=== PATIENT | female | born 1950 | race Caucasian/White ===

== ENCOUNTER 2019-03-24 10:00 | Emergency (ER) | payer MEDICARE, MEDICAID ==
[~2019-03-24] VITALS: Ht 154.9 cm; Wt 80.0 kg
[~2019-03-24 10:00] MED LIST: BUDE0.253 NEB; COU1T PO; DILT120C10 PO; LEVO100T9 PO; LISI-604 PO; METF-436 PO; METO100T14 PO; RANI300C PO; SIMV10TA98 PO
[2019-03-24] MEDS ORDERED: normal saline 1000ML IV soln IVB ONE (10:15)
[2019-03-24 10:23] LABS: BASOPHILS # (AUTO) 0.1 X10'3 (0-0.2); EOSINOPHILS # (AUTO) 0.1 X10'3 (0-0.9); HEMOGLOBIN 11.6 g/dl (12.0-16.0); MEAN CORPUSCULAR HEMOGLOBIN 23.7 PG (27.0-31.0); MEAN CORPUSCULAR HGB CONC 32.9 g/dL (33.0-36.5); MONOCYTES # (AUTO) 0.9 X10'3 (0-0.9); RED BLOOD COUNT 4.89 X10'6 (4.20-5.60); WHITE BLOOD COUNT 9.8 X10'3 (4.5-11.0)
[2019-03-24 10:26] LABS: BASOPHILS % (AUTO) 1.2 % (0-1); EOSINOPHILS % (AUTO) 1.3 % (0-6); HEMATOCRIT 35.2 % (35.0-45.0); LYMPHOCYTES # (AUTO) 2.8 X10'3 (1.1-4.8); LYMPHOCYTES % (AUTO) 28.5 % (21-51); MEAN CORPUSCULAR VOLUME 72.1 FL (78-98); MEAN PLATELET VOLUME 7.6 FL (7.4-10.4); NEUTROPHILS # (AUTO) 5.9 X10'3 (1.8-7.7); PLATELET COUNT 594 X10'3 (140-440); RED CELL DISTRIBUTION WIDTH 20.4 % (11.5-14.5)
[2019-03-24 10:36] LABS: PARTIAL THROMBOPLASTIN TIME 46 SECONDS (22-32)
[2019-03-24 10:38] LABS: ALANINE AMINOTRANSFERASE 14 U/L (12-78); ALBUMIN 3.9 G/DL (3.4-5.0); ALKALINE PHOSPHATASE 118 IU/L (46-116); ANION GAP 9 (8-16); ASPARTATE AMINO TRANSFERASE 16 U/L (10-37); BILIRUBIN,TOTAL 0.6 MG/DL (0.1-1.0); BLOOD UREA NITROGEN 9 MG/DL (7-18); BUN/CREATININE RATIO 13.8 (6.6-38.0); CALCIUM 8.6 MG/DL (8.5-10.1); CHLORIDE 103 MMOL/L (99-107); CREATININE 0.65 MG/DL (0.40-0.90); GLUCOSE 142 MG/DL (70-104); LIPASE 128 U/L (73-393); POTASSIUM 3.2 MMOL/L (3.5-5.1); SODIUM 142 MMOL/L (135-145); TOTAL CARBON DIOXIDE 29.6 MMOL/L (24-32); TOTAL PROTEIN 7.9 G/DL (6.4-8.2); eGFR > 90 ML/MIN
[2019-03-24 10:40] LABS: CLARITY,URINE TURBID (Clear); COLOR,URINE RED (Yellow); PH,URINE 6.5 (4.8-8.0)
[2019-03-24 10:41] LABS: UA COLLECTION TYPE CLN CATCH MIDSTREAM
[2019-03-24 10:44] LABS: BACTERIA,URINE NONE SEEN /HPF (Neg); MUCUS STRANDS NONE SEEN /LPF (Neg); RBC,URINE TNTC /HPF (0-2); SQUAMOUS EPITHELIAL CELL,UR NONE SEEN /LPF (FEW)
[2019-03-24 10:48] LABS: ANISOCYTOSIS 3+; HYPOCHROMASIA 1+; MICROCYTOSIS 1+; PLATELET ESTIMATE INCREASED; POIKILOCYTOSIS 1+; TARGET CELLS FEW
[2019-03-24 10:49] LABS: ACANTHOCYTES 1+; POLYCHROMASIA 1+; SCHISTOCYTES FEW
[2019-03-24] MEDS ORDERED: SULF1TAB49 PO (12:13)
[2019-03-24 12:21] VITALS: BP 140/85
== END 2019-03-24 12:30 | disposition home or self-care (01) ==
LOC: ER 10:00
DX: N39.0 Urinary tract infection, site not specified (principal); R31.9 Hematuria, unspecified; D35.02 Benign neoplasm of left adrenal gland; D35.01 Benign neoplasm of right adrenal gland; K80.20 Calculus of gallbladder without cholecystitis without obstruction; Z79.01 Long term (current) use of anticoagulants; Z79.899 Other long term (current) drug therapy
CPT/HCPCS: 36415; 74176; 80053; 81001; 83690; 85025; 85610; 85730; 87088; 99284; J7030

== ENCOUNTER 2019-10-11 09:56 | Day surgery (SDC) | payer MEDICARE, MEDICAID ==
[~2019-10-11] VITALS: Ht 154.9 cm; Wt 72.3 kg
[2019-10-11] MEDS ORDERED: MIDAZolam 5mg/5ml vial ONE (10:05)
[2019-10-11] MEDS ORDERED: fentaNYL/PF 50MCG/1 ML 2ML syringe ONE (10:05)
[2019-10-11] MEDS ORDERED: LIDOcaine Viscous 15ml cup ONE (10:05)
[2019-10-11 10:07] VITALS: BP 149/76
[2019-10-11] MEDS ORDERED: POTA-82 PO (10:29)
[2019-10-11] MEDS ORDERED: WARF3TAB56 PO (10:29)
[2019-10-11] MEDS ORDERED: ATOR40TA71 PO (10:30)
[2019-10-11] MEDS ORDERED: OMEP-50 PO (10:30)
[2019-10-11 10:45] VITALS: BP 115/56
[2019-10-11 10:55] VITALS: BP 108/56
[2019-10-11 11:05] VITALS: BP 114/61
== END 2019-10-11 11:15 | disposition home or self-care (01) ==
LOC: GI LAB 09:56
PROVIDERS: ATTEND Internal Medicine Gastroenterology
DX: D50.0 Iron deficiency anemia secondary to blood loss (chronic) (principal); R12 Heartburn; K44.9 Diaphragmatic hernia without obstruction or gangrene; K29.70 Gastritis, unspecified, without bleeding; K31.7 Polyp of stomach and duodenum
CPT/HCPCS: 43239; 43251; C1773; G0500; J2250; J3010; J7040; 99152; A4620

== ENCOUNTER 2022-02-16 11:01 | Emergency (ER) | payer MEDICARE, MEDICAID ==
[~2022-02-16] VITALS: Ht 154.9 cm; Wt 72.0 kg
[~2022-02-16 11:01] MED LIST changes: +ATOR40TA71 PO; -COU1T PO; -LISI-604 PO; +LISI5TAB22 PO; -METO100T14 PO; +OMEP20CA16 PO; +POTA-82 PO; -RANI300C PO; -SIMV10TA98 PO; +WARF3TAB56 PO
[2022-02-16 12:05] LABS: BASOPHILS # (AUTO) 0.1 X10'3 (0-0.2); BASOPHILS % (AUTO) 0.5 % (0-1); EOSINOPHILS % (AUTO) 0.3 % (0-6); HEMATOCRIT 39.3 % (35.0-45.0); HEMOGLOBIN 12.9 g/dl (12.0-16.0); LYMPHOCYTES # (AUTO) 1.4 X10'3 (1.1-4.8); LYMPHOCYTES % (AUTO) 9.2 % (21-51); MEAN CORPUSCULAR HGB CONC 32.8 g/dL (33.0-36.5); MEAN CORPUSCULAR VOLUME 88.6 FL (78-98); MEAN PLATELET VOLUME 7.7 FL (7.4-10.4); MONOCYTES # (AUTO) 0.7 X10'3 (0-0.9); NEUTROPHILS # (AUTO) 12.6 X10'3 (1.8-7.7); PLATELET COUNT 490 X10'3 (140-440); RED BLOOD COUNT 4.44 X10'6 (4.20-5.60); RED CELL DISTRIBUTION WIDTH 15.5 % (11.5-14.5); WHITE BLOOD COUNT 14.8 X10'3 (4.5-11.0)
[2022-02-16 12:09] LABS: CLARITY,URINE CLOUDY (Clear); COLOR,URINE BROWN (Yellow); GLUCOSE, URINE NEGATIVE (Neg); KETONES,URINE TRACE mg/dl (Neg); LEUKOCYTE ESTERASE ,URINE NEGATIVE (Neg); NITRITES, URINE POSITIVE (Neg); OCCULT BLOOD,URINE MODERATE (Neg); PH,URINE 6.5 (4.8-8.0); PROTEIN,URINE >=300 mg/dl (Neg)
[2022-02-16 12:18] VITALS: BP 134/85
[2022-02-16 12:19] LABS: UA COLLECTION TYPE CLN CATCH MIDSTREAM
[2022-02-16 12:20] LABS: BACTERIA,URINE 2+ /HPF (Neg); RBC,URINE TNTC /HPF (0-2)
[2022-02-16 12:21] LABS: SQUAMOUS EPITHELIAL CELL,UR FEW /LPF (FEW)
[2022-02-16 12:23] LABS: AMORPHOUS URATES 2+
[2022-02-16 12:30] LABS: ALANINE AMINOTRANSFERASE 18 U/L (12-78); ALBUMIN/GLOBULIN RATIO 1.1 (1.1-1.5); ALKALINE PHOSPHATASE 101 IU/L (46-116); ANION GAP 9 (8-16); ASPARTATE AMINO TRANSFERASE 22 U/L (10-37); BILIRUBIN,TOTAL 1.2 MG/DL (0.1-1.0); BLOOD UREA NITROGEN 13 MG/DL (7-18); BUN/CREATININE RATIO 17.1 (6.6-38.0); CALCIUM 8.1 MG/DL (8.5-10.1); CHLORIDE 100 MMOL/L (99-107); CREATININE 0.76 MG/DL (0.40-0.90); GLUCOSE 133 MG/DL (70-104); LIPASE 77 U/L (73-393); POTASSIUM 3.7 MMOL/L (3.5-5.1); SODIUM 138 MMOL/L (135-145); TOTAL CARBON DIOXIDE 29.2 MMOL/L (24-32); TOTAL PROTEIN 7.8 G/DL (6.4-8.2); eGFR 75 ML/MIN
[2022-02-16] MEDS ORDERED: normal saline 1000ML IV soln IVB ONE (12:30)
[2022-02-16] MEDS ORDERED: CefTRIAXone 2gm/D5W 50ml BAG 50 ML IV ONE (12:30)
[2022-02-16] MEDS ORDERED: CEPH250T PO (12:46)
[2022-02-16] MEDS ORDERED: TRAM50TA2 PO (12:46)
[2022-02-16] MEDS ORDERED: ONDA4TAB12 PO (12:46)
== END 2022-02-16 13:51 | disposition home or self-care (01) ==
LOC: ER 11:01
DX: N10 Acute pyelonephritis (principal); R35.0 Frequency of micturition; R31.9 Hematuria, unspecified; R10.32 Left lower quadrant pain; Z79.899 Other long term (current) drug therapy
CPT/HCPCS: 36415; 80053; 81001; 83690; 84145; 85025; 87088; 96365; 99284; J0696; J7030